=== PATIENT | female | born 1985 | race Caucasian/White ===

== ENCOUNTER 2021-05-15 20:44 | Inpatient (IN) | payer OTHER ==
--- NOTE | 2021-05-15 20:49 | ERPHSYRPT ---
- History of Present Illness Time Seen by Provider: 05/15/21 20:49 Historian: patient, family Exam Limitations: no limitations Physician History: This is a 36-year-old obese white female who has a history of hypertension and presents with abdominal pain that began at noon today. Throughout the day it has worsened. She does feel nauseated but has not had any vomiting or diarrhea. She denies cough, she denies shortness of breath, she denies chest pain. Patient has had a cholecystectomy in the past. Her appendix is still in place. She still has her uterus in place and tubes and ovaries but she has had a an ablation as well as tubal ligation. Patient describes her pain as lower abdominal cramping. She has had no vaginal bleeding. She has no rectal bleeding. The pain does not radiate anywhere else. Timing/Duration: today Quality: cramping Abdominal Pain Onset Location: generalized abdomen Severity of Pain-Max: moderate Severity of Pain-Current: moderate Associated Symptoms: loss of appetite, nausea, No chest pain, No fever/chills, No vomiting Previous symptoms: no prior history Allergies/Adverse Reactions: No Known Drug Allergies Allergy (Verified 05/15/21 21:11) Home Medications: Lisinopril/Hydrochlorothiazide [Lisinopril-Hctz 20-12.5 mg Tab] 1 each PO DAILY 05/15/21 [History] Venlafaxine HCl ER 75 mg [Effexor XR 75 MG] 75 mg PO DAILY 05/15/21 [History] Travel Risk - International Travel Have you traveled outside of the country in past 3 weeks: No - Coronavirus Screening Are you exhibiting any of the following symptoms?: No Close contact with a COVID-19 positive Pt in past 14-21 Days: No - Review of Systems Constitutional: No Symptoms Eyes: No Symptoms Ears, Nose, & Throat: No Symptoms Respiratory: No Symptoms Cardiac: No Symptoms Abdominal/Gastrointestinal: Abdominal Pain, Nausea Genitourinary Symptoms: No Symptoms Musculoskeletal: No Symptoms Skin: No Symptoms Neurological: No Symptoms Psychological: No Symptoms Endocrine: No Symptoms Hematologic/Lymphatic: No Symptoms Immunological/Allergic: No Symptoms All Other Systems: Reviewed and Negative - Past Medical History Neurological History: No Pertinent History Cardiac History: No Pertinent History Respiratory History: No Pertinent History Endocrine Medical History: No Pertinent History, Liver Disease Musculoskeletal History: Arthritis, Degenerative Disk Disease - Nursing Vital Signs Nursing Vital Signs: Initial Vital Signs Pulse Rate 95 H 05/15/21 20:55 Respiratory Rate 18 05/15/21 20:55 Blood Pressure 177/118 05/15/21 20:55 O2 Sat by Pulse Oximetry 99 05/15/21 20:55 Pain Scale Pain Intensity 5 - Physical Exam General Appearance: no apparent distress, alert, anxiety Eye Exam: PERRL/EOMI, eyes nml inspection Ears, Nose, Throat Exam: normal ENT inspection, moist mucous membranes Neck Exam: normal inspection, non-tender, supple, full range of motion Respiratory Exam: normal breath sounds, lungs clear, airway intact, No chest tenderness, No respiratory distress Cardiovascular Exam: regular rate/rhythm, normal heart sounds, normal peripheral pulses Gastrointestinal/Abdomen Exam: soft, normal bowel sounds, tenderness, guarding, No rebound Pelvic Exam: not done Rectal Exam: not done Back Exam: normal inspection, normal range of motion, No CVA tenderness, No vertebral tenderness Extremity Exam: normal inspection, normal range of motion, pelvis stable Neurologic Exam: alert, oriented x 3, cooperative, machine umbrella tipper II-XII nml as tested, normal mood/affect, nml cerebellar function, nml station & gait, sensation nml Skin Exam: normal color, warm, dry Lymphatic Exam: No adenopathy SpO2 Interpretation: normal O2 Delivery: Room Air - Course Nursing assessment & vital signs reviewed: Yes Ordered Tests: Active Orders 24 hr Category Date Time Status Clean Catch Urine Specimen STAT Care 05/15/21 21:52 Active IV Insertion STAT Care 05/15/21 21:52 Active ABDOMEN AND PELVIS W/0 CONTRAS [CT] Stat Exams 05/15/21 21:53 Taken AMYLASE Stat Lab 05/15/21 21:00 Completed CBC W DIFF Stat Lab 05/15/21 21:00 Completed CMP Stat Lab 05/15/21 21:00 Completed CULTURE,URINE Stat Lab 05/15/21 21:00 Received LIPASE Stat Lab 05/15/21 21:00 Completed Lactic Acid Stat Lab 05/15/21 21:52 Completed UA W/RFX UR CULTURE Stat Lab 05/15/21 21:00 Completed Urine Triage Profile Stat Lab 05/15/21 21:00 Completed Transfer Order Routine Transfer 05/16/21 Ordered Medication Summary Generic Name Dose Route Start Last Admin Trade Name Freq PRN Reason Stop Dose Admin Piperacillin Sod/Tazobactam 100 mls @ 200 mls/hr 05/16/21 00:22 Sod 3.375 gm/ Sodium Chloride IV 05/16/21 00:51 STAT ONE Sodium Chloride 1,000 mls @ 999 mls/hr 05/16/21 00:22 Sodium Chloride 0.9% 1000 Ml IV 05/16/21 01:22 .Q1H1M STA Discontinued Medications Generic Name Dose Route Start Last Admin Trade Name Freq PRN Reason Stop Dose Admin Hydromorphone HCl 1 mg 05/15/21 21:52 05/15/21 21:57 Hydromorphone 1 Mg/Ml Injection IV 05/15/21 21:53 1 mg STAT ONE Administration Hydromorphone HCl Confirm 05/15/21 21:56 Hydromorphone 1 Mg/Ml Injection Administered 05/15/21 21:57 Dose 1 mg .ROUTE .STK-MED ONE Hydromorphone HCl 1 mg 05/16/21 00:22 Hydromorphone 1 Mg/Ml Injection IV 05/16/21 00:23 STAT ONE Sodium Chloride 1,000 mls @ 999 mls/hr 05/15/21 21:52 05/15/21 23:26 Sodium Chloride 0.9% 1000 Ml IV 05/15/21 22:52 Infused .Q1H1M STA Infusion Sodium Chloride Confirm 05/15/21 21:57 Sodium Chloride 0.9% 1000 Ml Administered 05/15/21 21:58 Dose 1,000 mls @ ud .ROUTE .STK-MED ONE Sodium Chloride 500 mls @ 500 mls/hr 05/15/21 23:14 05/16/21 00:37 Sodium Chloride 0.9% 500 Ml IV 05/16/21 00:13 Infused .Q1H ONE Titration Sodium Chloride Confirm 05/15/21 23:31 Sodium Chloride 0.9% 500 Ml Administered 05/15/21 23:32 Dose 500 mls @ ud IV .STK-MED ONE Ondansetron HCl 4 mg 05/15/21 21:52 05/15/21 21:58 Zofran 4 Mg/2 Ml Vial IV 05/15/21 21:53 4 mg STAT ONE Administration Ondansetron HCl Confirm 05/15/21 21:56 Zofran 4 Mg/2 Ml Vial Administered 05/15/21 21:57 Dose 4 mg .ROUTE .STK-MED ONE Lab/Rad Data: Laboratory Result Diagrams 05/15/21 21:00 05/15/21 21:00 Laboratory Results 05/15/21 05/15/21 05/15/21 Range/Units 21:52 21:00 21:00 WBC (4.0-10.5) K/mm3 RBC (4.1-5.4) M/mm3 Hgb (12.0-16.0) gm/dl Hct (35-47) % MCV (78-100) fl MCH (26-32) pg MCHC (32-36) g/dl RDW (11.5-14.0) % Plt Count (150-450) K/mm3 MPV (7.5-11.0) fl Gran % (36.0-66.0) % Eos # (Auto) (0-0.5) Absolute Lymphs (auto) (1.0-4.6) Absolute Monos (auto) (0.0-1.3) Lymphocytes % (24.0-44.0) % Monocytes % (0.0-12.0) % Eosinophils % (0.00-5.0) % Basophils % (0.0-0.4) % Absolute Granulocytes (1.4-6.9) Basophils # (0-0.4) Sodium (137-145) mmol/L Potassium (3.5-5.1) mmol/L Chloride (98-107) mmol/L Carbon Dioxide (22-30) mmol/L Anion Gap (5-15) MEQ/L BUN (7-17) mg/dL Creatinine (0.52-1.04) mg/dL Estimated GFR ML/MIN Glucose (74-106) mg/dL Lactic Acid 1.9 (0.4-2.0) Calcium (8.4-10.2) mg/dL Total Bilirubin (0.2-1.3) mg/dL AST (14-36) U/L ALT (0-35) U/L Alkaline Phosphatase (38-126) U/L Serum Total Protein (6.3-8.2) g/dL Albumin (3.5-5.0) g/dL Amylase (30-110) U/L Lipase (23-300) U/L Urine Color YELLOW (YELLOW) Urine Appearance SLIGHTLY CLOUDY (CLEAR) Urine pH 7.0 (5-6) Ur Specific [place] 1.024 (1.005-1.025) Urine Protein 30 (Negative) Urine Ketones TRACE (NEGATIVE) Urine Blood SMALL (0-5) Jean-Pierre/ul Urine Nitrite NEGATIVE (NEGATIVE) Urine Bilirubin NEGATIVE (NEGATIVE) Urine Urobilinogen 4 (0-1) mg/dL Ur Leukocyte Esterase NEGATIVE (NEGATIVE) Urine WBC (Auto) 3-5 (0-5) /HPF Urine RBC (Auto) 0-2 (0-2) /HPF U Hyaline Cast (Auto) 3-5 (0-2) /LPF U Epithel Cells (Auto) NONE (FEW) /HPF Urine Bacteria (Auto) NONE SEEN (NEGATIVE) /HPF Urine Mucus (Auto) SLIGHT (NEGATIVE) /HPF Urine Culture Reflexed YES (NO) Urine Glucose NEGATIVE (NEGATIVE) mg/dL Urine Opiates Level NEGATIVE (NEGATIVE) Ur Methadone NEGATIVE (NEGATIVE) Urine Barbiturates NEGATIVE (NEGATIVE) Ur Phencyclidine (PCP) NEGATIVE (NEGATIVE) Urine Amphetamine NEGATIVE (NEGATIVE) U Benzodiazepine Level NEGATIVE (NEGATIVE) Urine Cocaine NEGATIVE (NEGATIVE) Urine Marijuana (THC) NEGATIVE (NEGATIVE) 05/15/21 05/15/21 Range/Units 21:00 21:00 WBC 19.2 H (4.0-10.5) K/mm3 RBC 4.87 (4.1-5.4) M/mm3 Hgb 14.8 (12.0-16.0) gm/dl Hct 44.0 (35-47) % MCV 90.3 (78-100) fl MCH 30.4 (26-32) pg MCHC 33.6 (32-36) g/dl RDW 13.4 (11.5-14.0) % Plt Count 412 (150-450) K/mm3 MPV 10.0 (7.5-11.0) fl Gran % 76.0 H (36.0-66.0) % Eos # (Auto) 0.20 (0-0.5) Absolute Lymphs (auto) 3.59 (1.0-4.6) Absolute Monos (auto) 0.79 (0.0-1.3) Lymphocytes % 18.7 L (24.0-44.0) % Monocytes % 4.1 (0.0-12.0) % Eosinophils % 1.0 (0.00-5.0) % Basophils % 0.2 (0.0-0.4) % Absolute Granulocytes 14.61 H (1.4-6.9) Basophils # 0.04 (0-0.4) Sodium 135 L (137-145) mmol/L Potassium 3.9 (3.5-5.1) mmol/L Chloride 100 (98-107) mmol/L Carbon Dioxide 22 (22-30) mmol/L Anion Gap 16.6 H (5-15) MEQ/L BUN 12 (7-17) mg/dL Creatinine 0.64 (0.52-1.04) mg/dL Estimated GFR > 60.0 ML/MIN Glucose 146 H (74-106) mg/dL Lactic Acid (0.4-2.0) Calcium 10.2 (8.4-10.2) mg/dL Total Bilirubin 0.50 (0.2-1.3) mg/dL AST 35 (14-36) U/L ALT 31 (0-35) U/L Alkaline Phosphatase 122 (38-126) U/L Serum Total Protein 8.0 (6.3-8.2) g/dL Albumin 4.7 (3.5-5.0) g/dL Amylase 56 (30-110) U/L Lipase 70 (23-300) U/L Urine Color (YELLOW) Urine Appearance (CLEAR) Urine pH (5-6) Ur Specific [place] (1.005-1.025) Urine Protein (Negative) Urine Ketones (NEGATIVE) Urine Blood (0-5) Jean-Pierre/ul Urine Nitrite (NEGATIVE) Urine Bilirubin (NEGATIVE) Urine Urobilinogen (0-1) mg/dL Ur Leukocyte Esterase (NEGATIVE) Urine WBC (Auto) (0-5) /HPF Urine RBC (Auto) (0-2) /HPF U Hyaline Cast (Auto) (0-2) /LPF U Epithel Cells (Auto) (FEW) /HPF Urine Bacteria (Auto) (NEGATIVE) /HPF Urine Mucus (Auto) (NEGATIVE) /HPF Urine Culture Reflexed (NO) Urine Glucose (NEGATIVE) mg/dL Urine Opiates Level (NEGATIVE) Ur Methadone (NEGATIVE) Urine Barbiturates (NEGATIVE) Ur Phencyclidine (PCP) (NEGATIVE) Urine Amphetamine (NEGATIVE) U Benzodiazepine Level (NEGATIVE) Urine Cocaine (NEGATIVE) Urine Marijuana (THC) (NEGATIVE) - Progress Progress: improved, pain not gone completely, re-examined Progress Note: 05/16/21 00:29 CAT scan of the abdomen and pelvis shows indeterminate areas of small bowel mesenteric edema and minimally enlarged mesenteric lymph nodes. There is a slight twisting of the small bowel mesentery with changes suggestive of small internal hernia. There is no evidence of incarceration or definitive obstruction. Medical decision making: I spoke with Dr. Grider who is covering for Dr. Negron. Dr. Negron is the patient's primary care physician. This patient has small bowel mesenteric edema with suggestion of a small internal hernia on CAT scan of abdomen pelvis. She has an elevated white count of 19,000 with a left shift. I feel that the patient will be best served by admitting this patient into the hospital, keeping her n.p.o., providing her intravenous fluids, intravenous pain medication, intravenous emetics, repeat laboratory data and surgical consultation. Patient agrees with this plan. We will place her on Zosyn intravenous antibiotics. Discussed with : Faye Counseled pt/family regarding: lab results, diagnosis, rad results - Departure Departure Disposition: In-patient Admission Clinical Impression: Hernia of small intestine, Leukocytosis, Abdominal pain Condition: Stable Critical Care Time: No Referrals: SIA NEGRON [Primary Care Provider] -
[2021-05-15] MEDS ORDERED: Hydromorphone 1 mg/ml Injection IV ONE (21:52)
[2021-05-15] MEDS ORDERED: Sodium Chloride 0.9% 1000 ML 1,000 ML IV STA (21:52)
[2021-05-15] MEDS ORDERED: Zofran 4 MG/2 ML VIAL IV ONE (21:52)
[2021-05-15] MEDS ORDERED: Hydromorphone 1 mg/ml Injection ONE (21:56)
[2021-05-15] MEDS ORDERED: Zofran 4 MG/2 ML VIAL ONE (21:56)
[2021-05-15] MEDS ORDERED: Sodium Chloride 0.9% 1000 ML 1,000 ML ONE (21:57)
[2021-05-15 21:59] LABS: Absolute Neutrophil Ct (ANC) 14.61 (1.4-6.9); BASOPHIL % 0.2 % (0.0-0.4); Basophil (Absolute #) 0.04 (0-0.4); Hemoglobin 14.8 gm/dl (12.0-16.0); Lymphocyte (Absolute #) 3.59 (1.0-4.6); Lymphocytes % 18.7 % (24.0-44.0); Mean Cell Volume 90.3 fl (78-100); Mean Corpuscular Hemoglobin 30.4 pg (26-32); Mean Corpuscular Hgb Concent. 33.6 g/dl (32-36); Monocyte (Absolute #) 0.79 (0.0-1.3); Monocytes % 4.1 % (0.0-12.0); Platelet Count 412 K/mm3 (150-450); Red Blood Count 4.87 M/mm3 (4.1-5.4); Red Cell Distribution Width 13.4 % (11.5-14.0); White Blood Count 19.2 K/mm3 (4.0-10.5)
[2021-05-15 22:04] LABS: ALBUMIN 4.7 g/dL (3.5-5.0); ALKALINE PHOSPHATASE 122 U/L (38-126); AMYLASE 56 U/L (30-110); ANION GAP 16.6 MEQ/L (5-15); BLOOD UREA NITROGEN 12 mg/dL (7-17); CHLORIDE 100 mmol/L (98-107); Calcium 10.2 mg/dL (8.4-10.2); Carbon Dioxide 22 mmol/L (22-30); Creatinine 1 0.64 mg/dL (0.52-1.04); EST GLOMERULAR FILTRATION RATE > 60.0 ML/MIN; Glucose 146 mg/dL (74-106); LIPASE 70 U/L (23-300); Potassium 3.9 mmol/L (3.5-5.1); SGOT/AST 35 U/L (14-36); SGPT/ALT 31 U/L (0-35); SODIUM 135 mmol/L (137-145)
[2021-05-15 22:08] LABS: Appearance SLIGHTLY CLOUDY (CLEAR); Bilirubin NEGATIVE (NEGATIVE); Blood SMALL Ery/ul (0-5); Glucose NEGATIVE (NEGATIVE); Ketones TRACE (NEGATIVE); Leukocyte Esterase NEGATIVE (NEGATIVE); Mucus SLIGHT /HPF (NEGATIVE); Nitrite NEGATIVE (NEGATIVE); Protein,Urine Dip 30 (Negative); RBC 0-2 /HPF (0-2); Specific Gravity 1.024 (1.005-1.025); Urobilinogen 4 mg/dL (0-1)
[2021-05-15 22:09] LABS: Bacteria NONE SEEN /HPF (NEGATIVE)
[2021-05-15 22:19] LABS: Amphetamine,Urine NEGATIVE (NEGATIVE); Barbiturate,Urine NEGATIVE (NEGATIVE); Benzodiazepine,Urine NEGATIVE (NEGATIVE); Cocaine,Urine NEGATIVE (NEGATIVE); Methadone,Urine NEGATIVE (NEGATIVE); Opiate,Urine NEGATIVE (NEGATIVE); PCP,Urine NEGATIVE (NEGATIVE); THC,Urine NEGATIVE (NEGATIVE)
[2021-05-15] MEDS ORDERED: Sodium Chloride 0.9% 500 ML 500 ML IV ONE ×2 (23:14→23:31)
[2021-05-16] MEDS ORDERED: Sodium Chloride 0.9% 1000 ML 1,000 ML IV STA (00:22)
[2021-05-16] MEDS ORDERED: Zosyn 3.375 GM Vial 3.375 GM in Sodium Chloride 100ML MINI-BAG PLUS 100 ML IV ONE (00:22)
[2021-05-16] MEDS ORDERED: Hydromorphone 1 mg/ml Injection IV ONE (00:22)
[2021-05-16] MEDS ORDERED: Zosyn 3.375 GM Vial IV ONE ×2 (00:53→04:05)
[2021-05-16] MEDS ORDERED: Hydromorphone 1 mg/ml Injection ONE (00:53)
[2021-05-16] MEDS ORDERED: Sodium Chloride 100ML MINI-BAG PLUS 0 ML IV ONE (00:53)
[2021-05-16] MEDS ORDERED: Sodium Chloride 0.9% 1000 ML 1,000 ML ONE (00:53)
[2021-05-16] MEDS ORDERED: FEVERALL 650 MG PR PRN (02:27)
[2021-05-16] MEDS: Sodium Chloride 0.9% 1000 ML 1,000 ML IV SCH ×3 (04:01→22:56)
[2021-05-16] MEDS ORDERED: Sodium Chloride 100ML MINI-BAG PLUS 100 ML IV ONE (04:06)
[2021-05-16] MEDS: Zosyn 3.375 GM Vial 3.375 GM in Sodium Chloride 100ML MINI-BAG PLUS 100 ML IV SCH ×4 (04:58→23:14)
[2021-05-16] MEDS: Zofran 4 MG/2 ML VIAL IV PRN ×3 (04:58→20:51)
[2021-05-16] MEDS: Hydromorphone 1 mg/ml Injection IV PRN ×5 (04:58→23:16)
[2021-05-16 06:03] LABS: BASOPHIL % 0.3 % (0.0-0.4); Basophil (Absolute #) 0.04 (0-0.4); Eosinophil % 1.7 % (0.00-5.0); Eosinophil (Absolute #) 0.23 (0-0.5); Hematocrit 37.3 % (35-47); Lymphocyte (Absolute #) 4.16 (1.0-4.6); Lymphocytes % 30.8 % (24.0-44.0); Mean Cell Volume 93.3 fl (78-100); Mean Corpuscular Hgb Concent. 32.2 g/dl (32-36); Mean Platelet Volume 9.5 fl (7.5-11.0); Monocyte (Absolute #) 0.87 (0.0-1.3); Monocytes % 6.4 % (0.0-12.0); Neutrophil % 60.8 % (36.0-66.0); Platelet Count 293 K/mm3 (150-450); Red Cell Distribution Width 13.1 % (11.5-14.0); White Blood Count 13.5 K/mm3 (4.0-10.5)
[2021-05-16 06:22] LABS: ANION GAP 12.5 MEQ/L (5-15); BLOOD UREA NITROGEN 9 mg/dL (7-17); CHLORIDE 104 mmol/L (98-107); Calcium 8.8 mg/dL (8.4-10.2); Carbon Dioxide 23 mmol/L (22-30); Creatinine 1 0.65 mg/dL (0.52-1.04); EST GLOMERULAR FILTRATION RATE > 60.0 ML/MIN; Glucose 115 mg/dL (74-106); SODIUM 136 mmol/L (137-145)
--- NOTE | 2021-05-16 08:43 | PCM.HP ---
History of Present Illness - Chief Complaint Chief Complaint: Small bowel internal hernia History of Present Illness: is a 36 year old female who developed sudden onset of abdominal pain, started in epigstric/LUQ region and radiated to the back then became more diffuse, she became nauseated after the pain began but thought it was due to severe pain. she has no diarrhea, no constipation, hx of cholecystectomy as only prior abdominal surgery, apparently had a similar incident 9 years ago and left hospital AMA according to the patient, pain is better controlled but still present and severe at times. - Review of Systems Constitutional: No Fever, No Chills Respiratory: No Cough, No Short Of Breath Cardiac: No Chest Pain, No Edema, No Syncope Abdominal/Gastrointestinal: Abdominal Pain, Nausea Genitourinary Symptoms: No Dysuria Skin: No Rash Medications & Allergies Home Medications: Home Medication List Lisinopril/Hydrochlorothiazide [Lisinopril-Hctz 20-12.5 mg Tab] 1 each PO DAILY 05/15/21 [History Confirmed 05/15/21] Venlafaxine HCl ER 75 mg [Effexor XR 75 MG] 75 mg PO DAILY 05/15/21 [History Confirmed 05/15/21] Allergies/Adverse Reactions: Allergies Allergy/AdvReac Type Severity Reaction Status Date / Time No Known Drug Allergies Allergy Verified 05/15/21 21:11 - Past Medical History Past Medical History: Yes Neurological History: No Pertinent History ENT History: No Pertinent History Cardiac History: No Pertinent History Respiratory History: No Pertinent History Endocrine Medical History: No Pertinent History Musculoskelatal History: Other GI Medical History: Cirrhosis, Crohns Disease History: No Pertinent History Pyscho-Social History: No Pertinent History Reproductive Disorders: Menstrual Problems Comment: Pt has been dx with non alcoholic fatty liver. Patient also has back pain - Female History Hx Last Menstrual Period: current spotting Are you now?: No - Past Surgical History Past Surgical History: Yes Neuro Surgical History: No Pertinent History Cardiac History: No Pertinent History Respiratory Surgery: No Pertinent History GI Surgical History: No Pertinent History Genitourinary Surgical Hx: No Pertinent History Musculskeletal Surgical Hx: No Pertinent History Female Surgical History: Other Other Surgical History: Pt had thermal ablation in 2019 this is a approximation on the date - Social History Smoking Status: Current every day smoker How long have you smoked: 20 yrs Exposure to second hand smoke: No Alcohol: Occasionally Drug Use: none - Physical Exam Vital Signs: Vital Signs - 24 hr Temp Pulse Resp BP Pulse Ox 05/16/21 07:07 98.5 F 79 16 93/52 98 05/16/21 03:35 96.1 F 69 22 109/67 97 05/16/21 02:27 96.1 F 69 22 109/67 97 05/16/21 02:14 67 18 80/39 94 L 05/16/21 01:05 70 18 94/56 99 05/16/21 00:22 69 16 107/55 96 05/15/21 23:18 81 18 120/67 96 05/15/21 22:12 77 18 136/85 98 05/15/21 20:55 95 H 18 177/118 99 General Appearance: no apparent distress, thin, other (nontoxic appearing) Neurologic Exam: alert, oriented x 3, cooperative Respiratory Exam: normal breath sounds, lungs clear, No respiratory distress Cardiovascular Exam: regular rate/rhythm, normal heart sounds, normal peripheral pulses Gastrointestinal/Abdomen Exam: soft, tenderness (LUQ, mild. no guarding or rebound) Extremity Exam: normal inspection, normal range of motion, pelvis stable Skin Exam: normal color, warm, dry, No rash Results - Labs Lab/Micro Results: Lab Results-Last 24 Hours 05/15/21 05/15/21 05/15/21 Range/Units 21:00 21:00 21:00 WBC 19.2 H (4.0-10.5) K/mm3 RBC 4.87 (4.1-5.4) M/mm3 Hgb 14.8 (12.0-16.0) gm/dl Hct 44.0 (35-47) % MCV 90.3 (78-100) fl MCH 30.4 (26-32) pg MCHC 33.6 (32-36) g/dl RDW 13.4 (11.5-14.0) % Plt Count 412 (150-450) K/mm3 MPV 10.0 (7.5-11.0) fl Gran % 76.0 H (36.0-66.0) % Eos # (Auto) 0.20 (0-0.5) Absolute Lymphs (auto) 3.59 (1.0-4.6) Absolute Monos (auto) 0.79 (0.0-1.3) Lymphocytes % 18.7 L (24.0-44.0) % Monocytes % 4.1 (0.0-12.0) % Eosinophils % 1.0 (0.00-5.0) % Basophils % 0.2 (0.0-0.4) % Absolute Granulocytes 14.61 H (1.4-6.9) Basophils # 0.04 (0-0.4) Sodium 135 L (137-145) mmol/L Potassium 3.9 (3.5-5.1) mmol/L Chloride 100 (98-107) mmol/L Carbon Dioxide 22 (22-30) mmol/L Anion Gap 16.6 H (5-15) MEQ/L BUN 12 (7-17) mg/dL Creatinine 0.64 (0.52-1.04) mg/dL Estimated GFR > 60.0 ML/MIN Glucose 146 H (74-106) mg/dL Lactic Acid (0.4-2.0) Calcium 10.2 (8.4-10.2) mg/dL Total Bilirubin 0.50 (0.2-1.3) mg/dL AST 35 (14-36) U/L ALT 31 (0-35) U/L Alkaline Phosphatase 122 (38-126) U/L Serum Total Protein 8.0 (6.3-8.2) g/dL Albumin 4.7 (3.5-5.0) g/dL Amylase 56 (30-110) U/L Lipase 70 (23-300) U/L Urine Color YELLOW (YELLOW) Urine Appearance SLIGHTLY CLOUDY (CLEAR) Urine pH 7.0 (5-6) Ur Specific [place] 1.024 (1.005-1.025) Urine Protein 30 (Negative) Urine Ketones TRACE (NEGATIVE) Urine Blood SMALL (0-5) Jean-Pierre/ul Urine Nitrite NEGATIVE (NEGATIVE) Urine Bilirubin NEGATIVE (NEGATIVE) Urine Urobilinogen 4 (0-1) mg/dL Ur Leukocyte Esterase NEGATIVE (NEGATIVE) Urine WBC (Auto) 3-5 (0-5) /HPF Urine RBC (Auto) 0-2 (0-2) /HPF U Hyaline Cast (Auto) 3-5 (0-2) /LPF U Epithel Cells (Auto) NONE (FEW) /HPF Urine Bacteria (Auto) NONE SEEN (NEGATIVE) /HPF Urine Mucus (Auto) SLIGHT (NEGATIVE) /HPF Urine Culture Reflexed YES (NO) Urine Glucose NEGATIVE (NEGATIVE) mg/dL Urine Opiates Level (NEGATIVE) Ur Methadone (NEGATIVE) Urine Barbiturates (NEGATIVE) Ur Phencyclidine (PCP) (NEGATIVE) Urine Amphetamine (NEGATIVE) U Benzodiazepine Level (NEGATIVE) Urine Cocaine (NEGATIVE) Urine Marijuana (THC) (NEGATIVE) SARS-CoV-2 (PCR) (NEGATIVE) 05/15/21 05/15/21 05/16/21 Range/Units 21:00 21:52 00:52 WBC (4.0-10.5) K/mm3 RBC (4.1-5.4) M/mm3 Hgb (12.0-16.0) gm/dl Hct (35-47) % MCV (78-100) fl MCH (26-32) pg MCHC (32-36) g/dl RDW (11.5-14.0) % Plt Count (150-450) K/mm3 MPV (7.5-11.0) fl Gran % (36.0-66.0) % Eos # (Auto) (0-0.5) Absolute Lymphs (auto) (1.0-4.6) Absolute Monos (auto) (0.0-1.3) Lymphocytes % (24.0-44.0) % Monocytes % (0.0-12.0) % Eosinophils % (0.00-5.0) % Basophils % (0.0-0.4) % Absolute Granulocytes (1.4-6.9) Basophils # (0-0.4) Sodium (137-145) mmol/L Potassium (3.5-5.1) mmol/L Chloride (98-107) mmol/L Carbon Dioxide (22-30) mmol/L Anion Gap (5-15) MEQ/L BUN (7-17) mg/dL Creatinine (0.52-1.04) mg/dL Estimated GFR ML/MIN Glucose (74-106) mg/dL Lactic Acid 1.9 (0.4-2.0) Calcium (8.4-10.2) mg/dL Total Bilirubin (0.2-1.3) mg/dL AST (14-36) U/L ALT (0-35) U/L Alkaline Phosphatase (38-126) U/L Serum Total Protein (6.3-8.2) g/dL Albumin (3.5-5.0) g/dL Amylase (30-110) U/L Lipase (23-300) U/L Urine Color (YELLOW) Urine Appearance (CLEAR) Urine pH (5-6) Ur Specific [place] (1.005-1.025) Urine Protein (Negative) Urine Ketones (NEGATIVE) Urine Blood (0-5) Jean-Pierre/ul Urine Nitrite (NEGATIVE) Urine Bilirubin (NEGATIVE) Urine Urobilinogen (0-1) mg/dL Ur Leukocyte Esterase (NEGATIVE) Urine WBC (Auto) (0-5) /HPF Urine RBC (Auto) (0-2) /HPF U Hyaline Cast (Auto) (0-2) /LPF U Epithel Cells (Auto) (FEW) /HPF Urine Bacteria (Auto) (NEGATIVE) /HPF Urine Mucus (Auto) (NEGATIVE) /HPF Urine Culture Reflexed (NO) Urine Glucose (NEGATIVE) mg/dL Urine Opiates Level NEGATIVE (NEGATIVE) Ur Methadone NEGATIVE (NEGATIVE) Urine Barbiturates NEGATIVE (NEGATIVE) Ur Phencyclidine (PCP) NEGATIVE (NEGATIVE) Urine Amphetamine NEGATIVE (NEGATIVE) U Benzodiazepine Level NEGATIVE (NEGATIVE) Urine Cocaine NEGATIVE (NEGATIVE) Urine Marijuana (THC) NEGATIVE (NEGATIVE) SARS-CoV-2 (PCR) NEGATIVE (NEGATIVE) 05/16/21 05/16/21 Range/Units 04:22 05:50 WBC 13.5 H (4.0-10.5) K/mm3 RBC 4.00 L (4.1-5.4) M/mm3 Hgb 12.0 (12.0-16.0) gm/dl Hct 37.3 (35-47) % MCV 93.3 (78-100) fl MCH 30.0 (26-32) pg MCHC 32.2 (32-36) g/dl RDW 13.1 (11.5-14.0) % Plt Count 293 (150-450) K/mm3 MPV 9.5 (7.5-11.0) fl Gran % 60.8 (36.0-66.0) % Eos # (Auto) 0.23 (0-0.5) Absolute Lymphs (auto) 4.16 (1.0-4.6) Absolute Monos (auto) 0.87 (0.0-1.3) Lymphocytes % 30.8 (24.0-44.0) % Monocytes % 6.4 (0.0-12.0) % Eosinophils % 1.7 (0.00-5.0) % Basophils % 0.3 (0.0-0.4) % Absolute Granulocytes 8.20 H (1.4-6.9) Basophils # 0.04 (0-0.4) Sodium 136 L (137-145) mmol/L Potassium 4.0 (3.5-5.1) mmol/L Chloride 104 (98-107) mmol/L Carbon Dioxide 23 (22-30) mmol/L Anion Gap 12.5 (5-15) MEQ/L BUN 9 (7-17) mg/dL Creatinine 0.65 (0.52-1.04) mg/dL Estimated GFR > 60.0 ML/MIN Glucose 115 H (74-106) mg/dL Lactic Acid (0.4-2.0) Calcium 8.8 (8.4-10.2) mg/dL Total Bilirubin (0.2-1.3) mg/dL AST (14-36) U/L ALT (0-35) U/L Alkaline Phosphatase (38-126) U/L Serum Total Protein (6.3-8.2) g/dL Albumin (3.5-5.0) g/dL Amylase (30-110) U/L Lipase (23-300) U/L Urine Color (YELLOW) Urine Appearance (CLEAR) Urine pH (5-6) Ur Specific [place] (1.005-1.025) Urine Protein (Negative) Urine Ketones (NEGATIVE) Urine Blood (0-5) Jean-Pierre/ul Urine Nitrite (NEGATIVE) Urine Bilirubin (NEGATIVE) Urine Urobilinogen (0-1) mg/dL Ur Leukocyte Esterase (NEGATIVE) Urine WBC (Auto) (0-5) /HPF Urine RBC (Auto) (0-2) /HPF U Hyaline Cast (Auto) (0-2) /LPF U Epithel Cells (Auto) (FEW) /HPF Urine Bacteria (Auto) (NEGATIVE) /HPF Urine Mucus (Auto) (NEGATIVE) /HPF Urine Culture Reflexed (NO) Urine Glucose (NEGATIVE) mg/dL Urine Opiates Level (NEGATIVE) Ur Methadone (NEGATIVE) Urine Barbiturates (NEGATIVE) Ur Phencyclidine (PCP) (NEGATIVE) Urine Amphetamine (NEGATIVE) U Benzodiazepine Level (NEGATIVE) Urine Cocaine (NEGATIVE) Urine Marijuana (THC) (NEGATIVE) SARS-CoV-2 (PCR) (NEGATIVE) - Radiology Impressions Radiology Exams & Impressions: Radiology Procedures Category Date Time Status ABDOMEN AND PELVIS W/0 CONTRAS [CT] Stat Exams 05/15/21 21:53 Taken Assessment/Plan (1) Abdominal pain Current Visit: Yes Status: Acute Assessment & Plan: CT scan reviewed, etiology seems unclear but possible small intestine hernia vs volvulus, keep NPO and surgery consult pending Code(s): R10.9 - UNSPECIFIED ABDOMINAL PAIN (2) Hernia of small intestine Current Visit: Yes Status: Acute Code(s): K46.9 - UNSPECIFIED ABDOMINAL HERNIA WITHOUT OBSTRUCTION OR GANGRENE (3) Leukocytosis Current Visit: Yes Status: Acute Assessment & Plan: improved on Zosyn Code(s): D72.829 - ELEVATED WHITE BLOOD CELL COUNT, UNSPECIFIED
[2021-05-16] MEDS: Zestril 20 MG PO SCH (09:29)
[2021-05-16] MEDS: hydroDIURIL 25 MG PO SCH (09:30)
[2021-05-16] MEDS: Effexor XR 75 MG PO SCH (09:30)
[2021-05-16] MEDS ORDERED: NON-FORMULARY ITEM (Lisinopril/Hydrochlorothiazide [Lisinopril-Hctz 20-12.5 Mg Tab] 1 EACH PO SCH (10:00)
--- NOTE | 2021-05-16 13:54 | XRAY ---
Indication: Left upper quadrant and epigastric pain. Multiple contiguous axial images obtained through the abdomen and pelvis without contrast. Comparison: None Visualized lungs are clear. Heart not enlarged. Midesophagus is mildly fluid distended presumed from gastroesophageal reflux. Stomach is mildly fluid distended. Noncontrasted bowel loops appear nonobstructed. Normal appendix. Small cul-de-sac fluid presumed physiologic from rupture/leaking cyst. Mild diffuse fatty liver. Previous cholecystectomy. Left mid abdomen demonstrates a few centimeter/subcentimeter mesenteric nodes with minimal stranding as seen with adenitis. Remaining liver, pancreas, spleen, adrenal glands, kidneys, ureters, bladder, and uterus unremarkable for noncontrast exam. Very minimal aortoiliac calcifications without AAA. Osseous structures intact. No ventral or inguinal hernias. Impression: 1. A few centimeter/subcentimeter mesenteric nodes with stranding favoring mesenteric adenitis. 2. Incidental fatty liver and small physiologic cul-de-sac fluid. 3. Fluid distended mid esophagus presumed from gastroesophageal reflux. 4. Remaining CT abdomen/pelvis without contrast exam is negative. Comment: Preliminary interpretation made by [facility] who reports small internal hernia which I cannot appreciate. Also no secondary signs. A small bowel follow-through exam may yield further information if there remains clinical concern.
[2021-05-17] MEDS: Zosyn 3.375 GM Vial 3.375 GM in Sodium Chloride 100ML MINI-BAG PLUS 100 ML IV SCH ×3 (05:07→18:13)
[2021-05-17 05:29] LABS: Absolute Neutrophil Ct (ANC) 4.24 (1.4-6.9); BASOPHIL % 0.4 % (0.0-0.4); Basophil (Absolute #) 0.03 (0-0.4); Eosinophil % 2.8 % (0.00-5.0); Eosinophil (Absolute #) 0.23 (0-0.5); Hematocrit 36.1 % (35-47); Hemoglobin 11.4 gm/dl (12.0-16.0); Lymphocyte (Absolute #) 3.17 (1.0-4.6); Lymphocytes % 39.1 % (24.0-44.0); Mean Cell Volume 94.3 fl (78-100); Mean Corpuscular Hemoglobin 29.8 pg (26-32); Mean Corpuscular Hgb Concent. 31.6 g/dl (32-36); Mean Platelet Volume 9.7 fl (7.5-11.0); Monocyte (Absolute #) 0.44 (0.0-1.3); Monocytes % 5.4 % (0.0-12.0); Neutrophil % 52.3 % (36.0-66.0); Platelet Count 238 K/mm3 (150-450); Red Blood Count 3.83 M/mm3 (4.1-5.4); Red Cell Distribution Width 13.3 % (11.5-14.0); White Blood Count 8.1 K/mm3 (4.0-10.5)
[2021-05-17 06:01] LABS: ALBUMIN 3.3 g/dL (3.5-5.0); ALKALINE PHOSPHATASE 111 U/L (38-126); ANION GAP 9.5 MEQ/L (5-15); BLOOD UREA NITROGEN 8 mg/dL (7-17); CHLORIDE 105 mmol/L (98-107); Calcium 8.4 mg/dL (8.4-10.2); Carbon Dioxide 25 mmol/L (22-30); Creatinine 1 0.86 mg/dL (0.52-1.04); EST GLOMERULAR FILTRATION RATE > 60.0 ML/MIN; Glucose 82 mg/dL (74-106); Potassium 3.9 mmol/L (3.5-5.1); SGOT/AST 151 U/L (14-36); SGPT/ALT 141 U/L (0-35); SODIUM 136 mmol/L (137-145); Total Protein 5.9 g/dL (6.3-8.2)
[2021-05-17] MEDS: Hydromorphone 1 mg/ml Injection IV PRN ×3 (06:43→15:48)
[2021-05-17] MEDS: Sodium Chloride 0.9% 1000 ML 1,000 ML IV SCH (11:24)
[2021-05-17] MEDS: Zofran 4 MG/2 ML VIAL IV PRN (11:24)
--- NOTE | 2021-05-17 11:52 | XRAY ---
Indication: Midabdomen pain and nausea. Preliminary manager of security abdomen appears nonacute and nonobstructed. Solid organs and osseous structures unremarkable. Patient ingested 500 cc barium in total in conjunction with the upper GI exam exam of the same day. Multiple overhead radiographs obtained. There is normal antegrade movement of the barium through the small bowel loops to the level of the transverse colon within 80 minutes. Spot compression of the small bowel loops are negative for focal stricture, obstruction, or inflammatory changes. Normal ileocecal junction and normal barium filled appendix. Impression: Negative small bowel follow-through exam. Upper GI and small bowel follow-through exam fluoroscopy time is 4 minutes 12 seconds.
--- NOTE | 2021-05-17 11:55 | XRAY ---
Indication: Midabdomen pain and nausea. Single contrast upper GI exam performed. Patient ingested barium without miss swallow or aspiration. Esophagus is normal in course and caliber without focal stricture, infection, or filling defect. Barium freely empties into the stomach. During the exam, spontaneous gastroesophageal reflux demonstrated with barium refluxing up the level of the midesophagus. No hiatal hernia. Stomach normally distended without filling defect. Normal immediate gastric emptying. Duodenal cap and sweep appear normal. Impression: Spontaneous gastroesophageal reflux. Remaining upper GI exam is negative. Upper GI and small bowel follow-through exam fluoroscopy time is 4 minutes 12 seconds.
[2021-05-17] MEDS: Effexor XR 75 MG PO SCH (13:06)
[2021-05-17] MEDS: Zestril 20 MG PO SCH (13:06)
[2021-05-17] MEDS: hydroDIURIL 25 MG PO SCH (13:07)
[2021-05-17 16:22] VITALS: O2SAT 95
[2021-05-17 16:53] LABS: 027 TOX PROD PRESUMPTIVE NEGATIVE (NEGATIVE); TOXIGENIC C. DIFF ORG NEGATIVE (NEGATIVE)
[2021-05-17 21:07] VITALS: BP 119/57; PULSE 79
== END 2021-05-17 21:00 | disposition home or self-care (01) | DRG 392 ==
LOC: ED 20:44 → MED SURG 05-16 02:26
PROVIDERS: ADMIT Family Medicine; ATTEND Family Medicine
DX: R10.84 Generalized abdominal pain (principal); K46.9 Unspecified abdominal hernia without obstruction or gangrene; I10 Essential (primary) hypertension; Z79.899 Other long term (current) drug therapy; D72.829 Elevated white blood cell count, unspecified; Z20.822 Contact with and (suspected) exposure to COVID-19
CPT/HCPCS: 36000; 36415; 74176; 74240; 74248; 80048; 80053; 80307; 81001; 82150; 83605; 83690; 85025; 87045; 87046; 87086; 87328; 87329; 87493; 96374; 96375; 96376; 99284; J1170; J2405; U0003; A9270-GY

== ENCOUNTER 2021-10-07 20:51 | Emergency (ER) | payer OTHER ==
[2021-10-07 21:24] VITALS: BP 118/84; PULSE 109; O2SAT 97
[2021-10-07] MEDS ORDERED: Adacel Vial IM ONE (21:50)
--- NOTE | 2021-10-07 21:56 | ERPHSYRPT ---
- History of Present Illness Source: patient Exam Limitations: no limitations Patient Subjective Stated Complaint: " I was trying to get a knife out of a knife sleeve and it started to fall and I caught it and sliced open my finger " Triage Nursing Assessment: Pt presents to ER with complaints of laceration to left third digit. Pt states this occurred around 1800 tonight from knife while trying to cook italian style food. Pt tried to control bleeding and use steri-strips but "they wouldn't stay". Pt has an approx 1.5cm x 0.3cm laceration which appears deep with bleeding controlled at this time. Pt has full ROM and sensory to finger and hand. Pt rates pain 5/10 scale. Pt is alert and oriented x3. Respirations are easy. Denies any further issues. Last tetanus shot is unknown. Physician History: Laceration L 3rd digit per kitchen knife. Pt needs Tdap and denies other/previous injury. Occurred: just prior to arrival Method of Injury: incised Quality: constant Extremities Pain Location: 3rd finger: left Modifying Factors: Improves With: movement Associated Symptoms: none Allergies/Adverse Reactions: No Known Drug Allergies Allergy (Verified 10/07/21 21:24) Home Medications: Bupropion HCl 150 mg Sr [Wellbutrin SR 150 MG] 150 mg PO DAILY 10/07/21 [History] Hx Tetanus, Diphtheria Vaccination/Date Given: No Hx Influenza Vaccination/Date Given: Yes Hx Pneumococcal Vaccination/Date Given: No Immunizations Up to Date: Yes Travel Risk - International Travel Have you traveled outside of the country in past 3 weeks: No - Coronavirus Screening Are you exhibiting any of the following symptoms?: No - Vaccine Status Have you recieved a Covid-19 vaccination: Yes Intelligence Chief: Moderna - Vaccination Dates Date of 2cond Vaccination (if applicable): april 2021 - Review of Systems Constitutional: No Symptoms Eyes: No Symptoms Ears, Nose, & Throat: No Symptoms Respiratory: No Symptoms Cardiac: No Symptoms Abdominal/Gastrointestinal: No Symptoms Genitourinary Symptoms: No Symptoms Skin: No Symptoms Neurological: No Symptoms Psychological: No Symptoms Endocrine: No Symptoms Hematologic/Lymphatic: No Symptoms Immunological/Allergic: No Symptoms - Past Medical History Pertinent Past Medical History: Yes Neurological History: No Pertinent History ENT History: No Pertinent History Cardiac History: Hypertension Respiratory History: No Pertinent History Endocrine Medical History: No Pertinent History Musculoskeletal History: Other GI Medical History: Cirrhosis, Crohns Disease History: No Pertinent History Psycho-Social History: No Pertinent History Female Reproductive Disorders: Menstrual Problems Other Medical History: Pt has been dx with non alcoholic fatty liver. Patient also has back pain - Past Surgical History Past Surgical History: Yes Neuro Surgical History: No Pertinent History Cardiac: No Pertinent History Respiratory: No Pertinent History Gastrointestinal: Cholecystectomy Genitourinary: No Pertinent History Musculoskeletal: No Pertinent History Female Surgical History: Tubal Ligation, Other Other Surgical History: Pt had thermal ablation in 2019 this is a approximation on the date - Social History Smoking Status: Current every day smoker How long have you smoked: 20 yrs Exposure to second hand smoke: No Drug Use: none Patient Lives Alone: No Significant Family History: no pertinent family hx - Female History Hx Last Menstrual Period: 09/21/21 Hx Now: No - Nursing Vital Signs Nursing Vital Signs: Initial Vital Signs Pulse Rate 109 H 10/07/21 21:15 Respiratory Rate 18 10/07/21 21:15 Blood Pressure 118/84 10/07/21 21:15 O2 Sat by Pulse Oximetry 97 10/07/21 21:15 Pain Scale Pain Intensity 5 Mildly tachy, otherwise WNL - Physical Exam General Appearance: no apparent distress Eyes, Ears, Nose, Throat Exam: normal ENT inspection Neck Exam: normal inspection, non-tender Cardiovascular/Respiratory Exam: normal breath sounds, heart sounds normal, tachycardia (Mild) Abdominal Exam: non-tender Back Exam: normal inspection Shoulder Exam: normal inspection Elbow/Forearm Exam: normal inspection Wrist Exam: normal inspection Hand Exam: laceration (Lac L 3rd digit proximally, ventrally/FROM/good distal capillary return and sensation) Neuro/Tendon Exam: normal sensation, normal motor functions, normal tendon functions, responds to pain, no evidence tendon injury, No motor deficit, No sensory deficit Mental Status Exam: alert, oriented x 3, cooperative Skin Exam: normal color, warm, dry SpO2 Interpretation: normal SpO2: 97 O2 Delivery: Room Air Procedures - Laceration/Wound Repair Left Volar Finger Wound Location: Left (L ventral proximal 3rd digit) Wound Length (cm): 1.5 Wound's Depth, Shape: superficial Wound Explored: clean Irrigated: Yes Hibiclens Prep: Yes Anesthesia: digital block, 1% Lidocaine Volume Anesthetic (ccs): 3 Wound Repaired With: sutures Suture Size/Type: 4-0 (4.0 Ethilon x5) Number of Sutures: 5 Layer Closure?: No - Course Nursing assessment & vital signs reviewed: Yes Ordered Tests: Medication Summary Discontinued Medications Generic Name Dose Route Start Last Admin Trade Name Alia PRN Reason Stop Dose Admin Diphtheria/Tetanus/Acell Pertussis Confirm 10/07/21 21:50 Tdap --Diph,Pertuss(Acell),Tet Vac/Pf 0.5 Ml Vial Administered 10/07/21 21:51 Dose 0.5 ml IM .STK-MED ONE - Progress Progress: improved Counseled pt/family regarding: diagnosis, need for follow-up - Departure Departure Disposition: Home Clinical Impression: Laceration Condition: Stable Critical Care Time: No Referrals: SIA NEGRON MD [Primary Care Provider] - Follow up/PCP as directed Instructions: Wound Care (DC), Laceration Repair With Stitches (DC) Additional Instructions: Keep laceration dry for 3 days, then wash 1-2 times a day gently with soap/water Watch for signs of infection-redness/pain/pus/temperature greater than 100.5 Sutures out in 10 days
== END 2021-10-07 22:16 | disposition home or self-care (01) ==
LOC: ED 20:51
DX: S61.213A Laceration without foreign body of left middle finger without damage to nail, initial encounter (principal); W26.0XXA Contact with knife, initial encounter; Y93.G1 Activity, food preparation and clean up; I10 Essential (primary) hypertension; Z72.0 Tobacco use
CPT/HCPCS: 12001; 90471; 90715; 99283

== ENCOUNTER 2024-08-21 10:24 | Day surgery (SDC) | payer OTHER ==
[2024-08-21 10:58] VITALS: RESP 16
[2024-08-21] MEDS ORDERED: Lactated Ringers 1,000 ML IV ONE (11:05)
[2024-08-21] MEDS: Lactated Ringers 1,000 ML IV SCH (11:24)
[2024-08-21] MEDS ORDERED: Sensorcaine 0.25% 10 ML ONE ×2 (11:36→12:48)
[2024-08-21] MEDS ORDERED: Quelicin Fliptop 200 MG/10 ML ONE (11:51)
[2024-08-21] MEDS ORDERED: SUBLIMAZE 100 MCG/2 ML ONE ×2 (11:52→13:46)
[2024-08-21] MEDS ORDERED: DIPRIVAN 200 MG/20 ML IV ONE (11:52)
[2024-08-21] MEDS ORDERED: Versed 2 MG/2 ML Injection ONE (11:52)
[2024-08-21] MEDS: CEFAZOLIN 2 GM/100 ML NaCl 2 GM/100 ML IVPB IV SCH (12:06)
[2024-08-21] MEDS ORDERED: ROCURONIUM BROMIDE IV ONE (12:40)
[2024-08-21] MEDS ORDERED: BRIDION 200MG/2ML IV ONE (13:10)
[2024-08-21] MEDS ORDERED: Zofran 4 MG/2 ML VIAL ONE (13:10)
[2024-08-21] MEDS ORDERED: BACIGUENT 30 GM ONE (13:13)
[2024-08-21 15:04] VITALS: TEMP 96.7; O2SAT 97
[2024-08-21] MEDS: NORCO 7.5/325 MG TAB PO PRN (15:04)
[2024-08-21 15:13] VITALS: BP 127/86; PULSE 82
--- NOTE | 2024-08-22 09:28 | OP ---
SURGERY DATE/TIME: 08/21/2024 [id number] PREOPERATIVE DIAGNOSIS: Symptomatic scalp scar x2. POSTOPERATIVE DIAGNOSIS: Symptomatic scalp scar x2. PROCEDURE: Excision of symptomatic scalp scar x2. SURGEON: Freddy Berg MD ANESTHESIA: General. ESTIMATED BLOOD LOSS: Minimal. PATIENT CONDITION: Stable. COMPLICATIONS: None. SPECIMEN: Right scalp scar, left scalp scar. INDICATIONS: The patient is a 39-year-old female that had prior scalp surgery, and then has had a persistent intermittent drainage and pain at the site. This has been observed for a long period. She actually had an open wound at one point that was allowed to heal in, but then she continues to have pain and drainage. Discussion was had with the patient of risk of infection, bleeding, wound complication, again open wound, possible persistent chronic pain or chronic drainage. This is not a guarantee to make things normal, but she does want to proceed with excision. FINDINGS: As below. DESCRIPTION OF PROCEDURE: Patient was brought to the operating room. General anesthesia induced, routinely positioned prone, prepped and draped. A time-out performed. The lesions had been marked in the preoperative holding area. On the right side, a 1 x 4 cm elliptical excision was made around the prior scar to healthy scalp. This was carried down to the galea. The galea was not taken. The tissue was circumferentially normal. This was reapproximated without any tension. Similarly, the left-sided scar was excised 1 x 4 cm excision, similarly excised down to galea and not including the galea. There was good hemostasis. There was circumferential normal tissue. Deep dermal 3-0 Vicryl was placed and then the skin was reapproximated with angelnia. That was all hemostatic, satisfactory. The patient tolerated the procedure well. Plan is for extubation.
== END 2024-08-21 15:45 | disposition home or self-care (01) ==
LOC: SDC 10:24
PROVIDERS: ATTEND Surgery
DX: L90.5 Scar conditions and fibrosis of skin (principal)
CPT/HCPCS: 93005; J0330; J0690; J2250; J2405; J2704; J3010; A9270-GY